=== PATIENT | male | born 1960 | race Two or more races ===

== ENCOUNTER 2018-07-15 13:07 | Day surgery (SDC) | payer OTHER ==
[2018-07-15] MEDS ORDERED: PROPOFOL 20 ML (16:10)
== END 2018-07-15 17:55 | disposition home or self-care (01) ==
LOC: GIL 13:07
DX: K21.0 Gastro-esophageal reflux disease with esophagitis (principal); K22.70 Barrett's esophagus without dysplasia; K29.70 Gastritis, unspecified, without bleeding; J44.9 Chronic obstructive pulmonary disease, unspecified; E78.00 Pure hypercholesterolemia, unspecified; R10.10 Upper abdominal pain, unspecified
CPT/HCPCS: 43239; 88305; 88312; 88313